=== PATIENT | female | born 1995 | race Asian ===

== ENCOUNTER 2024-03-07 20:11 | Emergency (ER) | payer BC ==
[~2024-03-07] VITALS: Ht 157.5 cm; Wt 49.0 kg
[2024-03-07 20:48] VITALS: BP 158/77; PULSE 58; RESP 16; TEMP 97.8; O2SAT 98
[2024-03-07] MEDS ORDERED: ERYT60SO RIGHTEYE (21:58)
[2024-03-07] MEDS ORDERED: OCUFLX RIGHTEYE (22:08)
== END 2024-03-07 23:12 | disposition home or self-care (01) ==
LOC: ER 20:11
DX: H00.011 Hordeolum externum right upper eyelid (principal); H10.89 Other conjunctivitis; Z90.49 Acquired absence of other specified parts of digestive tract; Z88.8 Allergy status to other drugs, medicaments and biological substances
CPT/HCPCS: 99283